=== PATIENT | male | born 1965 | race Caucasian/White ===

== ENCOUNTER → 2019-03-14 | Outpatient (CLI) | payer SELFPAY ==
--- NOTE | 2019-03-14 18:15 | PCVCIMAG ---
APPROVED REPORT Study performed: 03/14/2019 16:00:09 Exam: Stress Echocardiogram Indication: Hyperlipidemia, Hypertension Patient Location: Echo lab Stress Nurse: Rosa Rios RN Status: routine Ht: 5 ft 8 in HR: 82 bpm BP: 130/90 mmHg Rhythm: NSR Procedure The patient underwent an Exercise Stress Test using the Christiano Protocol. Blood pressure, heart rate, and EKG were monitored. An Echocardiogram was performed by mixing technician in four stages in quad fashion. At peak stress, four selected images were obtained and placed side by side with resting images for comparison. Stress Test Details Stress Test: Exercise stress testing was performed using a Christiano protocol. HR Resting HR: 82 bpmMax Heart Rate (APMHR): 169 bpm Max HR Achieved: 176 bpmTarget HR (85% APMHR): 143 bpm % of APMHR: 104 Recovery HR: 114 bpm HR response to stress: Normal HR response to stress BP Resting BP: 130/90 mmHg Max BP: 186/90 mmHg Recovery BP: 148/88 mmHg BP response to stress: Normal blood pressure response to stress. ECG Resting ECG: Sinus Rhythm Recovery ECG: Sinus Rhythm Clinical Reason for Termination: Maximal effort Exercise duration: 10 min 03 sec Highest Stage Achieved: Stage 4: 4.2 mph at 16% grade. Exercise capacity: 13.40 METs Overall Exercise Capacity for Age: Normal Pre-Stress Echo The resting Echocardiogram showed normal left ventricular contractility with an estimated Ejection Fraction of about 55-60%. Normal wall motion in all segments on baseline images. Post-Stress Echo The stress Echocardiogram showed normal left ventricular contractility with an estimated Ejection Fraction of about 60-65%. Normal augmentation of wall motion in all segments on post stress images. Clinical No clinical or ECG evidence for ischemia. Conclusion Clinical Response: Non-ischemic Exercise Capacity: Average Stress ECG Response: Non-ischemic Stress Echo Images: Non-ischemic The left ventricle is normal in size and wall thickness in both the rest and stress images. Possible bicuspid aortic valve. Peak gradient is 26mmHg. Mean gradient is 14mmHg. Calclulated aortic valve is 1.5cm2. Other Information Study Quality: Good <Conclusion> The left ventricle is normal in size and wall thickness in both the rest and stress images. Possible bicuspid aortic valve. Peak gradient is 26mmHg. Mean gradient is 14mmHg. Calclulated aortic valve is 1.5cm2.
== END | disposition home or self-care (01) ==
LOC: PCVCIMAG 16:09
PROVIDERS: ATTEND General Practice
DX: E78.5 Hyperlipidemia, unspecified (principal); I10 Essential (primary) hypertension; R07.9 Chest pain, unspecified
CPT/HCPCS: 93325; 93351